=== PATIENT | male | born 1955 | race American Indian/Alaskan Native ===

== ENCOUNTER 2020-08-27 09:47 | Outpatient (CLI) | payer MEDICARE ==
--- NOTE | 2020-08-27 13:26 | Cat Scan Report ---
CT abdomen pelvis wo con INDICATION: MALIGNANT NEOPLASM OF PROSTATE CANCER. COMPARISON: None TECHNIQUE: Abdominal and pelvic CT exam performed. All CT scans at this location are performed using CT dose reduction for ALARA by means of automated exposure control. FINDINGS: CT ABDOMEN and PELVIS: Lung Bases: No significant abnormality. Liver: No significant abnormality. Biliary: No significant abnormality. Spleen: No significant abnormality. Pancreas: No significant abnormality. Adrenals: No significant abnormality. Kidneys: No significant abnormality. Lymphatics: No lymphadenopathy. Vasculature: Atherosclerotic but nonaneurysmal abdominal aorta. Bowel: No significant abnormality. Normal appendix. Pelvis: Mildly enlarged prostate. Osseous Structures: Remote left 6th-9th lateral aspect rib fractures. No suspicious osseous lesion. Additional Findings: None IMPRESSION: 1. No evidence for prostatic metastasis. Signer Name: Hector Velasquez MD Signed: 08/27/2020 1:21 PM Workstation Name: [id number]
--- NOTE | 2020-08-27 14:47 | Nuclear Medicine Report ---
NUCLEAR MEDICINE WHOLE BODY BONE IMAGING STUDY. HISTORY: PROSTATE CANCER COMPARISON: No prior bone scans are available for comparison. CT abdomen and pelvis from the same date was revie wed. TECHNIQUE: The patient was administered 26.1 mCi of technetium 99m labeled MDP intravenously. FINDINGS: There is bilateral, relatively symmetric articular activity which is most likely degenerative given t he distribution and symmetry. No asymmetric radiotracer activity is seen within the included axial and appendicular skeleton. There is normal soft tissue activity in the kidneys and urinary bladder. There is urine contamination in the left groin. IMPRESSION: No scintigraphic evidence of osseous metastatic disease. Presumed degenerative changes, as above. Signer Name: Hipolito Valadez MD Signed: 08/27/2020 2:42 PM Workstation Name: [id number]
== END 2020-08-27 09:48 | disposition home or self-care (01) ==
LOC: EDSEX 09:47 → NM 09:47
PROVIDERS: ATTEND Urology
DX: S22.42XA Multiple fractures of ribs, left side, initial encounter for closed fracture (principal); C61 Malignant neoplasm of prostate; I70.0 Atherosclerosis of aorta; N40.0 Benign prostatic hyperplasia without lower urinary tract symptoms; X58.XXXA Exposure to other specified factors, initial encounter; Y93.89 Activity, other specified; Y92.89 Other specified places as the place of occurrence of the external cause; Y99.8 Other external cause status
CPT/HCPCS: 74176; 78306; A9503